=== PATIENT | female | born 1950 | race Caucasian/White ===

== ENCOUNTER 2023-09-08 00:01 | Inpatient (IN) | payer MEDICARE ==
[2023-09-09 00:27] VITALS: BMI 43.9
[2023-09-09] MEDS ORDERED: Ondansetron PF 4 MG/2 ML Vial IVP PRN (00:36)
[2023-09-09] MEDS ORDERED: Acetaminophen 325 MG TAB PO PRN (00:36)
[2023-09-09] MEDS ORDERED: Acetaminophen 650 MG Suppository PR PRN (00:36)
[2023-09-09] MEDS ORDERED: Ondansetron ODT 4 MG TAB PO PRN (00:36)
[2023-09-09] MEDS: Metoprolol Tartrate 5 MG (5 mL) VIAL IVP PRN (01:03)
[2023-09-09 01:35] LABS: #Basophils 0.03 10x3/uL (0.0-0.2); %Basophils 0.3 % (0.0-1.0); %Eosinophils 0.7 % (0.0-10.0); %Lymphocytes 14.8 % (21.0-51.0); %Monocytes 5.7 % (0.0-10.0); %Neutrophils 78.2 % (42.0-75.0); Hematocrit 41.3 % (36.0-47.0); Mean Corpuscular HGB CONC 33.9 g/dL (32.0-36.0); Mean Corpuscular Hemoglobin 33.3 pg (27.0-31.0); Mean Corpuscular Volume 98.3 fL (78.0-98.0); Platelet Count 230 10x3/uL (130-400)
[2023-09-09 01:47] LABS: Magnesium 1.7 mg/dL (1.6-2.6)
[2023-09-09 01:48] LABS: ALT (SGPT) 14 U/L (8-55); AST (SGOT) 20 U/L (5-34); Albumin 3.3 g/dL (3.4-4.8); Alkaline Phosphatase 69 U/L (40-110); Anion Gap 18 mmol/L (10-20); BUN (Urea Nitrogen) 20 mg/dL (9.8-20.1); Bilirubin, Total 1.4 mg/dL (0.2-1.2); Calc. Creatinine Clearance 74 mL/min (70-130); Calcium 9.5 mg/dL (7.8-10.44); Carbon Dioxide 16 mmol/L (23-31); Chloride 102 mmol/L (98-107); Estimated GFR 43; Globulin 2.9 g/dL (2.4-3.5); Glucose 131 mg/dL (83-110); Potassium 4.7 mmol/L (3.5-5.1); Protein, Total 6.2 g/dL (5.8-8.1); Sodium 131 mmol/L (136-145)
[2023-09-09] MEDS: Amiodarone 450 MG in Dextrose 5% in Water 250 ML IVPB SCH (02:56)
[2023-09-09] MEDS ORDERED: Electrolyte Replacement Protocol FS PRN (03:45)
[2023-09-09] MEDS: Amiodarone 150 MG, Admixture Fee 1 EACH in Dextrose 5% in Water 100 ML IVPB SCH (05:01)
[2023-09-09] MEDS: Enoxaparin 120 MG/0.8 ML SYRINGE SC SCH (06:40)
[2023-09-09] MEDS: Magnesium 2 GM/50 ML(in water) 2 GM in Premix 1 BAG IVPB SCH ×2 (07:00→11:03)
[2023-09-09] MEDS ORDERED: Enoxaparin 120 MG/0.8 ML SYRINGE SC SCH (09:00)
[2023-09-09] MEDS: Sodium Chloride 0.9% 1,000 ML IV SCH (11:08)
[2023-09-09] MEDS ORDERED: Metoprolol Tartrate 25 MG TAB PO SCH ×2 (16:15→21:00)
[2023-09-09] MEDS: Metoprolol Tartrate 50 MG TAB PO SCH ×2 (18:08→20:42)
[2023-09-09] MEDS: Atorvastatin Calcium 20 MG TAB PO SCH (20:42)
[2023-09-10] MEDS: Levothyroxine Sodium 100 MCG TAB PO SCH (06:30)
[2023-09-10 09:23] LABS: Anion Gap 17 mmol/L (10-20); BUN (Urea Nitrogen) 19 mg/dL (9.8-20.1); Calc. Creatinine Clearance 75 mL/min (70-130); Calcium 9.4 mg/dL (7.8-10.44); Carbon Dioxide 15 mmol/L (23-31); Chloride 105 mmol/L (98-107); Estimated GFR 45; Glucose 122 mg/dL (83-110); Magnesium 2.1 mg/dL (1.6-2.6); Potassium 4.4 mmol/L (3.5-5.1); Sodium 133 mmol/L (136-145)
[2023-09-10] MEDS: Magnesium 2 GM/50 ML(in water) 2 GM in Premix 1 BAG IVPB SCH (11:16)
[2023-09-10] MEDS: Metoprolol Tartrate 100 MG TAB PO SCH (21:55)
[2023-09-11 04:44] LABS: Anion Gap 13 mmol/L (10-20); BUN (Urea Nitrogen) 17 mg/dL (9.8-20.1); Calc. Creatinine Clearance 87 mL/min (70-130); Calcium 8.9 mg/dL (7.8-10.44); Carbon Dioxide 19 mmol/L (23-31); Chloride 107 mmol/L (98-107); Estimated GFR 53; Glucose 135 mg/dL (83-110); Magnesium 2.1 mg/dL (1.6-2.6); Potassium 4.1 mmol/L (3.5-5.1); Sodium 135 mmol/L (136-145)
[2023-09-11] MEDS ORDERED: Metoprolol Tartrate 5 MG (5 mL) VIAL ONE (07:57)
[2023-09-11] MEDS: Amiodarone 200 MG TAB PO SCH ×2 (09:43→15:56)
[2023-09-11] MEDS: Magnesium 2 GM/50 ML(in water) 2 GM in Premix 1 BAG IVPB SCH (12:57)
[2023-09-11 16:30] VITALS: TEMP 97.9
[2023-09-11 17:07] VITALS: BP 153/72
[2023-09-11] MEDS ORDERED: Apixaban 5 MG TAB PO SCH (21:00)
== END 2023-09-11 17:57 | disposition home or self-care (01) | DRG 309 ==
LOC: 2SW 09-09 00:10 → OBSVTOIN 09-09 12:44
PROVIDERS: ADMIT Student in an Organized Health Care Education/Training Program; ATTEND Internal Medicine
PROC: B245ZZ4 Ultrasonography of Left Heart, Transesophageal (ICD-10-PCS; principal; 2023-09-11)
PROC: 5A2204Z Restoration of Cardiac Rhythm, Single (ICD-10-PCS; 2023-09-11)
DX: I48.19 Other persistent atrial fibrillation (principal); J90 Pleural effusion, not elsewhere classified; N17.9 Acute kidney failure, unspecified; Z68.41 Body mass index [BMI] 40.0-44.9, adult; Z66 Do not resuscitate; I42.9 Cardiomyopathy, unspecified; I48.91 Unspecified atrial fibrillation; I10 Essential (primary) hypertension; M06.9 Rheumatoid arthritis, unspecified; E03.9 Hypothyroidism, unspecified; I70.0 Atherosclerosis of aorta; E66.01 Morbid (severe) obesity due to excess calories; N18.30 Chronic kidney disease, stage 3 unspecified; I08.3 Combined rheumatic disorders of mitral, aortic and tricuspid valves; Z88.8 Allergy status to other drugs, medicaments and biological substances; Z79.899 Other long term (current) drug therapy; Z98.890 Other specified postprocedural states; Z85.820 Personal history of malignant melanoma of skin
CPT/HCPCS: 36415; 71275; 80048; 80053; 83735; 84443; 85025; 92960; 93005; 93010; 93306; 93312; J0282; J1650; J3475; J7050; J7070

== ENCOUNTER 2023-09-15 16:48 | Inpatient (IN) | payer MEDICARE ==
[2023-09-15] MEDS ORDERED: Furosemide 40 MG (4 mL) VIAL ONE (19:27)
[2023-09-15 20:24] LABS: #Basophils 0.04 10x3/uL (0.0-0.2); #Eosinphils Less than 0.03 10x3/uL (0.0-0.7); %Basophils 0.4 % (0.0-1.0); %Eosinophils 0.2 % (0.0-10.0); %Lymphocytes 6.8 % (21.0-51.0); %Monocytes 5.5 % (0.0-10.0); %Neutrophils 86.8 % (42.0-75.0); Hematocrit 43.6 % (36.0-47.0); Hemoglobin 14.5 g/dL (12.0-16.0); Mean Corpuscular HGB CONC 33.3 g/dL (32.0-36.0); Mean Corpuscular Hemoglobin 32.7 pg (27.0-31.0); Mean Corpuscular Volume 98.4 fL (78.0-98.0); Mean Platelet Volume 12.3 fL (7.4-10.4); Platelet Count 228 10x3/uL (130-400); RBC Distribution Width 14.3 % (11.5-14.5); Red Blood Cell (RBC) Count 4.43 mill/uL (4.20-5.40)
[2023-09-15 20:47] LABS: ALT (SGPT) 16 U/L (8-55); AST (SGOT) 16 U/L (5-34); Albumin 3.5 g/dL (3.4-4.8); Alkaline Phosphatase 79 U/L (40-110); Anion Gap 19 mmol/L (10-20); BUN (Urea Nitrogen) 22 mg/dL (9.8-20.1); Bilirubin, Total 1.4 mg/dL (0.2-1.2); Calc. Creatinine Clearance 0 mL/min (70-130); Calcium 9.5 mg/dL (7.8-10.44); Carbon Dioxide 18 mmol/L (23-31); Chloride 107 mmol/L (98-107); Estimated GFR 39; Glucose 107 mg/dL (83-110); Potassium 4.9 mmol/L (3.5-5.1); Protein, Total 6.5 g/dL (5.8-8.1); Sodium 139 mmol/L (136-145)
[2023-09-15] MEDS ORDERED: Ondansetron PF 4 MG/2 ML Vial IVP PRN (21:32)
[2023-09-15 23:10] VITALS: BMI 43.3
[2023-09-15] MEDS: Melatonin 3 MG TAB PO PRN (23:42)
[2023-09-15] MEDS: Metoprolol Tartrate 100 MG TAB PO SCH (23:43)
[2023-09-15] MEDS: Amiodarone 200 MG TAB PO SCH (23:43)
[2023-09-16 01:16] LABS: Troponin I 0.036 ng/mL (< 0.028)
[2023-09-16 04:10] LABS: #Basophils 0.04 10x3/uL (0.0-0.2); %Basophils 0.5 % (0.0-1.0); %Eosinophils 0.9 % (0.0-10.0); %Monocytes 7.3 % (0.0-10.0); %Neutrophils 79.9 % (42.0-75.0); Hematocrit 40.7 % (36.0-47.0); Hemoglobin 13.2 g/dL (12.0-16.0); Mean Corpuscular HGB CONC 32.4 g/dL (32.0-36.0); Mean Corpuscular Volume 98.5 fL (78.0-98.0); Mean Platelet Volume 12.6 fL (7.4-10.4); Platelet Count 189 10x3/uL (130-400); RBC Distribution Width 14.3 % (11.5-14.5); Red Blood Cell (RBC) Count 4.13 mill/uL (4.20-5.40)
[2023-09-16 04:36] LABS: Anion Gap 17 mmol/L (10-20); BUN (Urea Nitrogen) 23 mg/dL (9.8-20.1); Calc. Creatinine Clearance 69 mL/min (70-130); Calcium 9.7 mg/dL (7.8-10.44); Carbon Dioxide 18 mmol/L (23-31); Chloride 107 mmol/L (98-107); Estimated GFR 41; Glucose 109 mg/dL (83-110); Magnesium 1.7 mg/dL (1.6-2.6); Potassium 4.4 mmol/L (3.5-5.1); Sodium 138 mmol/L (136-145)
[2023-09-16 04:44] LABS: Troponin I 0.038 ng/mL (< 0.028)
[2023-09-16 06:03] LABS: Bacteria/HPF None Seen HPF (None Seen); Bilirubin Negative (Negative); Blood, Urine Negative (Negative); CAUTI Indications for Culture Alt mental st,lethar; Clarity Clear (Clear); Glucose, Urine (Dipstick) Normal (Negative); Ketone, Urine Negative (Negative); Leukocyte Negative Leu/uL (Negative); Nitrite Negative (Negative); Protein, Urine (Dipstick) Negative (Neg-Trace); RBC/HPF None Seen HPF (0-3); Specific Gravity, Urine 1.008 (1.002-1.036); Squamous Epithelial 0-3 HPF (0-3); Urobilinogen Normal mg/dL (Less than 2); WBC/HPF None Seen HPF (0-3)
[2023-09-16] MEDS: Levothyroxine Sodium 100 MCG TAB PO SCH (06:03)
[2023-09-16] MEDS: Furosemide 40 MG (4 mL) VIAL SLOW IVP SCH (06:03)
[2023-09-16 06:04] LABS: Urine Culture Reflex No No
[2023-09-16] MEDS: Apixaban 5 MG TAB PO SCH (09:06)
[2023-09-16] MEDS: Metoprolol Tartrate 100 MG TAB PO SCH (09:06)
[2023-09-16] MEDS: Amiodarone 200 MG TAB PO SCH (09:06)
[2023-09-16] MEDS: Empagliflozin 10 MG TAB PO SCH (11:57)
[2023-09-16] MEDS ORDERED: Atorvastatin Calcium 20 MG TAB PO SCH (21:00)
[2023-09-16] MEDS: Atorvastatin Calcium 10 MG TAB PO SCH (21:50)
[2023-09-17 05:51] LABS: #Basophils 0.03 10x3/uL (0.0-0.2); %Basophils 0.5 % (0.0-1.0); %Eosinophils 2.4 % (0.0-10.0); %Lymphocytes 17.8 % (21.0-51.0); %Monocytes 9.5 % (0.0-10.0); %Neutrophils 69.3 % (42.0-75.0); Hematocrit 37.9 % (36.0-47.0); Hemoglobin 12.7 g/dL (12.0-16.0); Mean Corpuscular HGB CONC 33.5 g/dL (32.0-36.0); Mean Corpuscular Volume 98.4 fL (78.0-98.0); Mean Platelet Volume 12.3 fL (7.4-10.4); Platelet Count 183 10x3/uL (130-400); Red Blood Cell (RBC) Count 3.85 mill/uL (4.20-5.40)
[2023-09-17 05:59] LABS: Anion Gap 16 mmol/L (10-20); BUN (Urea Nitrogen) 25 mg/dL (9.8-20.1); Calc. Creatinine Clearance 61 mL/min (70-130); Carbon Dioxide 25 mmol/L (23-31); Chloride 100 mmol/L (98-107); Estimated GFR 36; Glucose 102 mg/dL (83-110); Magnesium 1.5 mg/dL (1.6-2.6); Potassium 3.5 mmol/L (3.5-5.1); Sodium 137 mmol/L (136-145)
[2023-09-17] MEDS: Magnesium 2 GM/50 ML(in water) 2 GM in Premix 1 BAG IVPB SCH (09:15)
[2023-09-17] MEDS: Empagliflozin 10 MG TAB PO SCH (09:15)
[2023-09-17] MEDS: Potassium Chloride 20 MEQ TAB PO SCH (09:15)
[2023-09-17 12:12] VITALS: TEMP 97.4
[2023-09-17 12:45] VITALS: BP 109/56
[2023-09-18] MEDS ORDERED: Furosemide 40 MG TAB PO SCH (07:30)
== END 2023-09-17 15:49 | disposition home or self-care (01) | DRG 291 ==
LOC: ERS 16:48 → 2NO 21:34
PROVIDERS: ADMIT Internal Medicine; ATTEND Family Medicine
DX: I13.0 Hypertensive heart and chronic kidney disease with heart failure and stage 1 through stage 4 chronic kidney disease, or unspecified chronic kidney disease (principal); I50.23 Acute on chronic systolic (congestive) heart failure; N17.9 Acute kidney failure, unspecified; Z68.41 Body mass index [BMI] 40.0-44.9, adult; E78.5 Hyperlipidemia, unspecified; E03.9 Hypothyroidism, unspecified; N18.30 Chronic kidney disease, stage 3 unspecified; M06.9 Rheumatoid arthritis, unspecified; I48.0 Paroxysmal atrial fibrillation; E66.01 Morbid (severe) obesity due to excess calories; Z88.8 Allergy status to other drugs, medicaments and biological substances; Z79.890 Hormone replacement therapy; Z79.899 Other long term (current) drug therapy; Z98.890 Other specified postprocedural states
CPT/HCPCS: 36415; 36416; 71045; 80048; 80053; 81001; 83735; 83880; 84484; 85025; 93005; 93798; 96374; 97139; J1940; J3475

== ENCOUNTER 2023-10-27 06:46 | Day surgery (SDC) | payer MEDICARE ==
[2023-10-23 16:22] VITALS: BMI 41.1
[2023-10-27 08:36] LABS: #Basophils 0.05 10x3/uL (0.0-0.2); %Basophils 0.8 % (0.0-1.0); %Eosinophils 1.4 % (0.0-10.0); %Lymphocytes 17.3 % (21.0-51.0); Hematocrit 43.1 % (36.0-47.0); Mean Corpuscular HGB CONC 32.5 g/dL (32.0-36.0); Mean Corpuscular Hemoglobin 32.4 pg (27.0-31.0); Mean Corpuscular Volume 99.8 fL (78.0-98.0); Mean Platelet Volume 10.5 fL (7.4-10.4); Platelet Count 249 10x3/uL (130-400); RBC Distribution Width 13.5 % (11.5-14.5); Red Blood Cell (RBC) Count 4.32 mill/uL (4.20-5.40)
[2023-10-27 08:50] LABS: Anion Gap 15 mmol/L (10-20); BUN (Urea Nitrogen) 20 mg/dL (9.8-20.1); Calc. Creatinine Clearance 50 mL/min (70-130); Calcium 9.6 mg/dL (7.8-10.44); Carbon Dioxide 24 mmol/L (23-31); Chloride 106 mmol/L (98-107); Estimated GFR 29; Glucose 126 mg/dL (83-110); Potassium 4.1 mmol/L (3.5-5.1); Sodium 141 mmol/L (136-145)
[2023-10-27] MEDS ORDERED: PHENYLEPHRINE-NS 100 MCG/ML 10 ML SYRINGE ONE (09:28)
[2023-10-27] MEDS ORDERED: PROPOFOL 20 ML ONE (09:28)
[2023-10-27] MEDS ORDERED: Apixaban 5 MG TAB PO SCH (10:15)
== END 2023-10-27 11:25 | disposition home or self-care (01) ==
LOC: SDC 06:46
PROVIDERS: ATTEND Internal Medicine Cardiovascular Disease
PROC: 5A2204Z Restoration of Cardiac Rhythm, Single (ICD-10-PCS; principal; 2023-10-27)
DX: I48.19 Other persistent atrial fibrillation (principal); I50.9 Heart failure, unspecified; E66.01 Morbid (severe) obesity due to excess calories; Z68.41 Body mass index [BMI] 40.0-44.9, adult; Z79.01 Long term (current) use of anticoagulants; Z79.899 Other long term (current) drug therapy; Z88.1 Allergy status to other antibiotic agents; Z88.5 Allergy status to narcotic agent; Z88.8 Allergy status to other drugs, medicaments and biological substances; Z88.6 Allergy status to analgesic agent
CPT/HCPCS: 80048; 85025; 92960; 93005; J2704; 93010